=== PATIENT | male | born 1960 | race African-American/Black ===

== ENCOUNTER 2017-09-29 08:23 | Inpatient (IN) | payer MEDICARE, OTHER ==
[2017-09-29] VITALS (533 sets, daily range): BP systolic 111–164; BP diastolic 71–81; PULSE 83–128; TEMP 97.2–98; O2SAT 75–100
[~2017-09-29] VITALS: Ht 185.4 cm; Wt 63.3 kg
[2017-09-29] MEDS ORDERED: CELEXA10 MG (08:30)
[2017-09-29] MEDS ORDERED: NOVOLOG 100U100 U/M1 SQ (08:31)
[2017-09-29] MEDS ORDERED: LIPITOR 80MG80 MG PO (08:31)
[2017-09-29] MEDS ORDERED: FLAGYL500 MG PO (08:32)
[2017-09-29] MEDS ORDERED: LEVOXYL0.15 MG PO (08:32)
[2017-09-29] MEDS ORDERED: FLOMAX 0.40.4 MG/CAP PO (08:33)
[2017-09-29] MEDS ORDERED: BACTRIM DS 8001 TAB PO (08:33)
[2017-09-29] MEDS ORDERED: PRIL40 PO (08:34)
[2017-09-29] MEDS ORDERED: HCTZ 25MG TAB25 MG PO (08:34)
[2017-09-29] MEDS ORDERED: LANTUS100 U/ML SQ (08:35)
[2017-09-29 09:17] LABS: BASO % 0.3 % (0.0-2.0); GRAN # 10.7 (1.4-6.5); GRAN % 89.7 % (42.2-75.2); HEMATOCRIT 40.9 % (42.0-52.0); HEMOGLOBIN 13.9 g/dl (13.5-18.0); LYMPH # 0.9 (1.2-3.4); LYMPH % 7.2 % (20.0-51.0); MEAN CELL VOLUME 95 fl (80.0-100.0); MEAN CORPUSCULAR HEMOGLOBIN 32 pg (27.0-31.0); MEAN CORPUSCULAR HGB CONC 34 g/dl (33.0-37.0); MEAN PLATELET VOLUME 10.5 fl (7.4-10.4); MONO # 0.3 (0.1-0.6); MONO % 2.4 % (1.7-9.3); PLATELET COUNT 290 K/mm3 (130-400); RED BLOOD COUNT 4.31 M/mm3 (4.20-5.60); REDCELL DISTRIBUTION WIDTH-CV 12.6 % (11.5-14.5)
[2017-09-29 09:26] LABS: ACETONE,SERUM SMALL; ALANINE AMINOTRANSFERASE 50 U/L (21-72); ALBUMIN 5.3 gm/dL (3.5-5.0); ALKALINE PHOSPHATASE 129 U/L (50-136); ANION GAP 28 mmol/L (7-16); AST,SGOT 45 U/L (15-37); BILIRUBIN,TOTAL 0.8 mg/dL (0.0-1.0); BLOOD UREA NITROGEN 40 mg/dL (9-20); CALCIUM 10.5 mg/dL (8.4-10.2); CREATININE, serum 1.65 mg/dL (0.66-1.25); LIPASE 51 U/L (23-300); POTASSIUM 5.7 mmol/L (3.4-5.0); SODIUM 129 mmol/L (137-145); TOTAL PROTEIN 8.5 gm/dL (6.4-8.2)
[2017-09-29 09:43] LABS: CARBON DIOXIDE 13 mmol/L (22-30); CHLORIDE 88 mmol/L (98-107); GLUCOSE 690 mg/dL (74-106)
[2017-09-29 09:57] LABS: COLLECTION METHOD CLEAN CATCH
[2017-09-29 10:03] LABS: PH 5 (5-8); SQUAMOUS EPITHELIAL None Seen /hpf; URINE APPEARANCE Clear; URINE BACTERIA None Seen /hpf; URINE BILIRUBIN Negative (NEGATIVE); URINE BLOOD 1+ (NEGATIVE); URINE COLOR Yellow; URINE GLUCOSE 3+ (NEGATIVE); URINE KETONE 2+ (NEGATIVE); URINE LEUKOCYTE ESTERASE Negative (NEGATIVE); URINE NITRATE Negative (NEGATIVE); URINE PROTEIN(semi-quant) Negative (NEGATIVE); URINE RBC 0-2 /hpf; URINE UROBILINOGEN Negative (NEGATIVE)
[2017-09-29] MEDS ORDERED: PRINIVIL40 MG PO (10:04)
[2017-09-29 10:21] LABS: ARTERIAL BLD GAS O2 SATURATION 95.7 % (92-100); ARTERIAL BLD GAS TCO2 CT 13.2; ARTERIAL BLOOD GAS BASE EXCESS -14.7 (-2-2); ARTERIAL BLOOD GAS HCO3 12.2 meq/L (22-26); ARTERIAL BLOOD GAS PCO2 32.2 mmHg (35-45); ARTERIAL BLOOD GAS PO2 100.7 mmHg (80-100)
[2017-09-29 13:43] LABS: ARTERIAL BLD GAS O2 SATURATION 95.5 % (92-100); ARTERIAL BLD GAS TCO2 CT 11.8; ARTERIAL BLOOD GAS BASE EXCESS -15.3 (-2-2); ARTERIAL BLOOD GAS HCO3 10.9 meq/L (22-26); ARTERIAL BLOOD GAS PCO2 27.4 mmHg (35-45); ARTERIAL BLOOD GAS PO2 96.8 mmHg (80-100); ARTERIAL BLOOD GAS pH 7.22 (7.35-7.45)
[2017-09-29 13:56] LABS: CREATININE, serum 1.57 mg/dL (0.66-1.25); PHOSPHOROUS 6.1 mg/dL (2.5-4.5); POTASSIUM 5.4 mmol/L (3.4-5.0)
[2017-09-29] MEDS ORDERED: PRILOSEC 20MG20 MG PO (15:13)
[2017-09-29] MEDS ORDERED: CELEXA40 MG PO (15:22)
[2017-09-29] MEDS ORDERED: NICODERM C21 MG/PATC TD (15:23)
[2017-09-29] MEDS ORDERED: NICORETTE4 MG PO (15:24)
[2017-09-29 16:37] LABS: CALCIUM 9.2 mg/dL (8.4-10.2); CREATININE, serum 1.33 mg/dL (0.66-1.25); POTASSIUM 4.5 mmol/L (3.4-5.0)
[2017-09-29 20:30] LABS: CALCIUM 8.9 mg/dL (8.4-10.2); CREATININE, serum 1.27 mg/dL (0.66-1.25); POTASSIUM 4.2 mmol/L (3.4-5.0)
[2017-09-29 22:44] LABS: CALCIUM 8.7 mg/dL (8.4-10.2); CREATININE, serum 1.25 mg/dL (0.66-1.25); POTASSIUM 4.1 mmol/L (3.4-5.0)
[2017-09-30] VITALS (577 sets, daily range): BP systolic 131–166; BP diastolic 79–97; PULSE 8–88; TEMP 97.4–98.7; O2SAT 92–100
[2017-09-30 06:10] LABS: CREATININE, serum 1.28 mg/dL (0.66-1.25); POTASSIUM 3.9 mmol/L (3.4-5.0)
[2017-10-01 00:48] VITALS: BP 113/70; PULSE 69; TEMP 98.1
[2017-10-01 06:21] VITALS: BP 102/65; PULSE 86; TEMP 97.8
[2017-10-01 07:05] LABS: BASO % 0.2 % (0.0-2.0); EOS # 0.1 (0.0-0.7); EOS % 1.7 % (0-4.0); GRAN # 5.2 (1.4-6.5); GRAN % 61.4 % (42.2-75.2); LYMPH # 2.4 (1.2-3.4); LYMPH % 28.5 % (20.0-51.0); MEAN CELL VOLUME 94 fl (80.0-100.0); MEAN CORPUSCULAR HGB CONC 34 g/dl (33.0-37.0); MEAN PLATELET VOLUME 11.1 fl (7.4-10.4); MONO # 0.7 (0.1-0.6); MONO % 7.8 % (1.7-9.3); PLATELET COUNT 258 K/mm3 (130-400); RED BLOOD COUNT 3.63 M/mm3 (4.20-5.60)
[2017-10-01 07:11] LABS: HEMATOCRIT 34.2 % (42.0-52.0); HEMOGLOBIN 11.5 g/dl (13.5-18.0); MEAN CORPUSCULAR HEMOGLOBIN 32 pg (27.0-31.0)
[2017-10-01 07:40] LABS: CALCIUM 8.8 mg/dL (8.4-10.2); CREATININE, serum 1.19 mg/dL (0.66-1.25); MAGNESIUM 1.8 mg/dL (1.6-2.3); PHOSPHOROUS 2.6 mg/dL (2.5-4.5); POTASSIUM 4.1 mmol/L (3.4-5.0)
[2017-10-01 08:41] VITALS: BP 115/76; PULSE 85; TEMP 98.7
[2017-10-01] MEDS ORDERED: LEVEMIR FLEX100 U/ML SQ (10:35)
[2017-10-01] MEDS ORDERED: NOVOLOG FLEX100 U/ML SQ (10:35)
[2017-10-01 11:33] VITALS: BP 119/69; PULSE 89; TEMP 98.4
== END 2017-10-01 13:34 | disposition home or self-care (01) | DRG 638 ==
LOC: COL.ER 08:23 → ICU 10:25 → MEDICAL 09-30 17:13
PROVIDERS: Emergency Medicine; Internal Medicine; Physician Assistant
DX: E11.10 Type 2 diabetes mellitus with ketoacidosis without coma (principal); E87.1 Hypo-osmolality and hyponatremia; N17.9 Acute kidney failure, unspecified; E87.2 Acidosis; I12.9 Hypertensive chronic kidney disease with stage 1 through stage 4 chronic kidney disease, or unspecified chronic kidney disease; E11.22 Type 2 diabetes mellitus with diabetic chronic kidney disease; E11.65 Type 2 diabetes mellitus with hyperglycemia; N18.9 Chronic kidney disease, unspecified; Z79.4 Long term (current) use of insulin; E05.00 Thyrotoxicosis with diffuse goiter without thyrotoxic crisis or storm; F17.210 Nicotine dependence, cigarettes, uncomplicated; E87.5 Hyperkalemia
CPT/HCPCS: 99223-AI; 99232-AI; 99238; C9113; J0610; J1644; J1815; J2405; J2543; J2550; J2765; J3370; J7030; J7042; J7050